=== PATIENT | male | born 1980 | race Two or more races ===

== ENCOUNTER 2019-05-31 07:13 | Day surgery (SDC) | payer MEDICARE, MEDICAID ==
[2019-05-26 15:30] LABS: CLARITY,URINE CLEAR (Clear); COLOR,URINE YELLOW (Yellow); GLUCOSE, URINE NEGATIVE (Neg); KETONES,URINE NEGATIVE (Neg); LEUKOCYTE ESTERASE ,URINE NEGATIVE (Neg); NITRITES, URINE NEGATIVE (Neg); OCCULT BLOOD,URINE NEGATIVE (Neg); PH,URINE 7.5 (4.8-8.0); PROTEIN,URINE NEGATIVE (Neg); UROBILINOGEN,URINE 0.2 E.U/dL (0.2-1.0)
[2019-05-26 15:31] LABS: UA COLLECTION TYPE VOIDED
[2019-05-26 15:37] LABS: BASOPHILS % (AUTO) 0.6 % (0-1); LYMPHOCYTES # (AUTO) 1.9 X10'3 (1.1-4.8); LYMPHOCYTES % (AUTO) 41.8 % (21-51); MEAN CORPUSCULAR HEMOGLOBIN 20.3 PG (27.0-31.0); MEAN CORPUSCULAR HGB CONC 32.5 g/dL (33.0-36.5); MEAN CORPUSCULAR VOLUME 62.3 FL (78-98); MEAN PLATELET VOLUME 8.9 FL (7.4-10.4); MONOCYTES # (AUTO) 0.3 X10'3 (0-0.9); MONOCYTES % (AUTO) 7.1 % (2-12); NEUTROPHILS # (AUTO) 2.3 X10'3 (1.8-7.7); NEUTROPHILS % (AUTO) 49.5 % (42-75); PRE OP HEMATOCRIT 37.7 % (42.0-52.0); PRE OP HEMOGLOBIN 12.3 g/dL (14.0-17.9); PRE OP PLATELET COUNT 199 X10'3 (140-440); RED BLOOD COUNT 6.04 X10'6 (4.70-6.10); RED CELL DISTRIBUTION WIDTH 15.9 % (11.5-14.5)
[2019-05-26 15:52] LABS: ALBUMIN/GLOBULIN RATIO 1.1 (1.1-1.5); ALKALINE PHOSPHATASE 79 IU/L (46-116); BLOOD UREA NITROGEN 6 MG/DL (7-18); BUN/CREATININE RATIO 8.5 (5.4-32.0); CALCIUM 8.3 MG/DL (8.5-10.1); CHLORIDE 105 MMOL/L (99-107); CREATININE 0.71 MG/DL (0.60-1.10); PRE OP ALT 27 U/L (30-65); PRE OP ANION GAP 8 (8-16); PRE OP AST 11 U/L (10-37); PRE OP BILIRUB, TOTAL 0.5 MG/DL (0.0-1.0); PRE OP GLUCOSE 93 MG/DL (70-104); PRE OP POTASSIUM 4.1 MMOL/L (3.4-5.1); PRE OP SODIUM 139 MMOL/L (135-145); TOTAL CARBON DIOXIDE 25.9 MMOL/L (24-32); TOTAL PROTEIN 7.5 G/DL (6.4-8.2); eGFR > 90 ML/MIN
[2019-05-26 15:58] LABS: PRE OP PROTIME 10.1 SECONDS (9.0-12.0)
[2019-05-26 16:40] LABS: PLATELET ESTIMATE NORMAL
[2019-05-26 16:41] LABS: ANISOCYTOSIS 1+; ELLIPTOCYTES FEW; HYPOCHROMASIA 2+; MICROCYTOSIS 2+; POIKILOCYTOSIS 1+; TEAR DROP CELLS 1+
[~2019-05-31] VITALS: Ht 180.3 cm; Wt 95.1 kg
[~2019-05-31 07:13] MED LIST: ALBU8.5H8 INH; BENZ1TAB7 PO; CHOL10002 PO; DIVA-76 PO; IRON OTC PO; LEVO25TA2 PO; PARO40TA PO; POTA10CA44 PO; QUET-1 PO; RISP4TAB7 PO; VARD20TA31 PO; ZIPR40CA2 PO; ZIPR80CA2 PO
[2019-05-31 07:30] VITALS: BP 105/71
[2019-05-31] MEDS ORDERED: cefazolin/dext.iso 2gm/100 ML IV ONE (07:30)
[2019-05-31] MEDS ORDERED: ringers solution, lacted 1,000 ML IV SCH ×2 (07:30→08:34)
[2019-05-31] MEDS ORDERED: famotidine 20mg tablet PO ONE (07:30)
[2019-05-31] MEDS ORDERED: albuterol 2.5 MG/3 ML nebule NEB ONE (07:30)
[2019-05-31] MEDS ORDERED: LIDOcaine 1% (10mg/ml) 2ml vial ONE (07:31)
[2019-05-31] MEDS ORDERED: morphine 4 MG/ML inj SYRINge IV PRN ×2 (08:35)
[2019-05-31] MEDS ORDERED: ondansetron/PF 4mg/2ml inj IV PRN (08:35)
[2019-05-31] MEDS ORDERED: meperidine/PF 25mg/ml syringe IV PRN ×3 (08:35)
[2019-05-31] MEDS ORDERED: proCHLORperazine 10 MG/2 ml inj IV PRN (08:35)
[2019-05-31] MEDS ORDERED: fentaNYL/PF 50MCG/1 ML 2ML syringe ONE (10:33)
[2019-05-31] MEDS ORDERED: MIDAZolam 5mg/5ml vial ONE (10:33)
[2019-05-31] MEDS ORDERED: LIDOcaine 1% 30ml preserv. free vial ONE (10:41)
[2019-05-31] MEDS ORDERED: LIDOcaine 2% (20mg/ml) 5ml vial ONE (10:41)
[2019-05-31] MEDS ORDERED: propofol inj 20 ML IV ONE (10:41)
[2019-05-31 11:04] VITALS: BP 116/54
--- NOTE | 2019-05-31 11:04 | NUR ---
Received from OR via , accompanied by Anesthesiologist DR TREVINO and report given by Anesthesiolgist. AWAKENS TO VOICE. VITALS STABLE. DRESSING DI. DIANN PAIN.
[2019-05-31 11:14] VITALS: BP 108/69
[2019-05-31 11:24] VITALS: BP 109/75
[2019-05-31 11:34] VITALS: BP 111/73
--- NOTE | 2019-05-31 11:44 | NUR ---
AWAKE AND ORIENTED. VITALS STABLE. DRESSING DI. DIANN PAIN. HOME WITH HIS MOM AT THIS TIME.
== END 2019-05-31 11:44 | disposition home or self-care (01) ==
LOC: PAS 07:13
PROVIDERS: ATTEND Surgery
DX: D17.1 Benign lipomatous neoplasm of skin and subcutaneous tissue of trunk (principal); J45.909 Unspecified asthma, uncomplicated; F17.210 Nicotine dependence, cigarettes, uncomplicated; F31.9 Bipolar disorder, unspecified; F20.9 Schizophrenia, unspecified; Z98.890 Other specified postprocedural states; Z79.899 Other long term (current) drug therapy; Z85.850 Personal history of malignant neoplasm of thyroid
CPT/HCPCS: 21552; 36415; 80053; 81003; 82948; 85025; 85610; 85730; 93005; J2001; J2250; J2704; J3010; J7120; A4215; A4618; A6449; A7000

== ENCOUNTER 2024-03-02 15:58 | Emergency (ER) | payer MEDICARE, MEDICAID ==
[~2024-03-02] VITALS: Ht 182.9 cm; Wt 77.0 kg
[~2024-03-02 15:58] MED LIST changes: +ALBU8.5H17 INH; -ALBU8.5H8 INH; -BENZ1TAB7 PO; +BENZ1TAB93 PO; +PARO-154 PO; -PARO40TA PO; -POTA10CA44 PO; +POTA10CA95 PO
[2024-03-02] MEDS: haloperidol lactate 5mg/ml inj IM ONE ×2 (16:29→17:42)
[2024-03-02] MEDS: LORazepam 2 mg/ml vial IM ONE (16:29)
[2024-03-02] MEDS: diphenhydrAMINE 50 mg/ml inj IM ONE (16:29)
[2024-03-02] MEDS: LidoCAINE 2% Topical Jelly 11mL syringe (UROJET) TOP ONE (17:46)
[2024-03-02] MEDS: LORazepam 2 mg/ml vial IM STA (18:32)
[2024-03-02] MEDS: OLANZapine **IM** 10 mg inj. IM ONE (20:25)
[2024-03-02 22:12] LABS: BASOPHILS # (AUTO) 0.1 X10'3 (0-0.2); PLATELET COUNT 357 X10'3 (140-440); WHITE BLOOD COUNT 8.8 X10'3 (4.5-11.0)
[2024-03-02 22:13] LABS: BASOPHILS % (AUTO) 0.7 % (0-1); EOSINOPHILS # (AUTO) 0.1 X10'3 (0-0.9); EOSINOPHILS % (AUTO) 1.3 % (0-6); HEMOGLOBIN 10.4 g/dl (14.0-17.9); LYMPHOCYTES # (AUTO) 2.3 X10'3 (1.1-4.8); LYMPHOCYTES % (AUTO) 26.2 % (21-51); MEAN CORPUSCULAR HEMOGLOBIN 19.9 PG (27.0-31.0); MEAN CORPUSCULAR HGB CONC 32.3 g/dL (33.0-36.5); MEAN CORPUSCULAR VOLUME 61.6 FL (78-98); MEAN PLATELET VOLUME 7.4 FL (7.4-10.4); MONOCYTES # (AUTO) 0.7 X10'3 (0-0.9); MONOCYTES % (AUTO) 7.5 % (2-12); NEUTROPHILS # (AUTO) 5.7 X10'3 (1.8-7.7); NEUTROPHILS % (AUTO) 64.3 % (42-75)
[2024-03-02 22:27] LABS: ANISOCYTOSIS 1+; PLATELET ESTIMATE NORMAL
[2024-03-02 22:28] LABS: ELLIPTOCYTES FEW; MICROCYTOSIS 2+; POIKILOCYTOSIS FEW
[2024-03-02 22:29] LABS: ALBUMIN 3.2 G/DL (3.4-5.0); ANION GAP 6 (8-16); BLOOD UREA NITROGEN 6 MG/DL (7-18); BUN/CREATININE RATIO 9.8 (10.0-20.0); CALCIUM 8.6 MG/DL (8.5-10.1); CHLORIDE 108 MMOL/L (99-107); CREATININE 0.61 MG/DL (0.60-1.10); ETHANOL < 10 MG/DL (<10); GLUCOSE 95 MG/DL (70-104); POTASSIUM 3.7 MMOL/L (3.5-5.1); SCHISTOCYTES FEW; SODIUM 141 MMOL/L (135-145); TARGET CELLS FEW; TOTAL CARBON DIOXIDE 26.7 MMOL/L (24-32); eCRCL 167 ML/MIN; eGFR > 90 ML/MIN
[2024-03-02 22:30] LABS: BURR CELLS FEW; HYPOCHROMASIA 1+
[2024-03-02 22:59] LABS: THYROID STIMULATING HORMONE 93.04 ulU/ml (0.34-4.50)
[2024-03-03 02:01] LABS: CREATINE KINASE 571 U/L (39-308); FREE T4 (FREE THYROXINE) 0.76 NG/DL (0.73-1.40)
[2024-03-03] MEDS: normal saline 1000ML IV soln IVB ONE (02:19)
[2024-03-03 06:49] LABS: BILIRUBIN,URINE NEGATIVE (Neg); CLARITY,URINE CLEAR (Clear); COLOR,URINE YELLOW (Yellow); GLUCOSE, URINE NEGATIVE (Neg); KETONES,URINE NEGATIVE (Neg); LEUKOCYTE ESTERASE ,URINE NEGATIVE (Neg); NITRITES, URINE NEGATIVE (Neg); OCCULT BLOOD,URINE NEGATIVE (Neg); PROTEIN,URINE NEGATIVE (Neg); UROBILINOGEN,URINE 0.2 E.U/dL (0.2-1.0)
[2024-03-03 06:56] LABS: UA COLLECTION TYPE VOIDED
[2024-03-03 07:04] LABS: URINE AMPHETAMINE SCREEN NEGATIVE (Neg); URINE BARBITUATE SCREEN NEGATIVE (Neg); URINE BENZODIAZEPINES SCREEN NEGATIVE (Neg); URINE CANNABINOID SCREEN POSITIVE (Neg); URINE COCAINE SCREEN NEGATIVE (Neg); URINE METHADONE SCREEN NEGATIVE (Neg); URINE OPIATE SCREEN NEGATIVE (Neg); URINE PHENCYCLIDINE SCREEN NEGATIVE (Neg)
[2024-03-03] MEDS ORDERED: LORazepam 2 mg/ml vial IM ONE (07:15)
[2024-03-03] MEDS ORDERED: haloperidol lactate 5mg/ml inj IM ONE (07:15)
[2024-03-03 08:32] VITALS: TEMP 98.5
[2024-03-03] MEDS: haloperidol 5mg tablet PO ONE (08:52)
[2024-03-03] MEDS: LORazepam 1 MG tablet PO ONE ×2 (08:52→14:00)
[2024-03-03] MEDS: acetaminophen 325mg tablet PO ONE ×2 (08:53→13:56)
[2024-03-03] MEDS ORDERED: QUET200T31 PO (13:17)
[2024-03-03] MEDS ORDERED: CARB200T8 PO (13:17)
[2024-03-03] MEDS ORDERED: PRAZ2CAP2 PO (13:17)
[2024-03-03] MEDS ORDERED: FLUT1BLS16 INH (13:17)
[2024-03-03] MEDS ORDERED: ARIP10TA57 PO (13:17)
[2024-03-03] MEDS ORDERED: ERGO500093 PO (13:17)
[2024-03-03] MEDS ORDERED: SERT-434 PO (13:17)
[2024-03-03] MEDS ORDERED: ERGO500041 PO (16:21)
[2024-03-03] MEDS ORDERED: LEVO150T PO (16:21)
[2024-03-03] MEDS ORDERED: FLUT1BLS4 INH (16:21)
[2024-03-03] MEDS: ergocalciferol (vit D2) capsule 50,000 UNITS (1,250mcg) CAPSULE PO SCH (17:03)
[2024-03-03 17:37] VITALS: PULSE 106; RESP 17; O2SAT 98
[2024-03-03] MEDS: LORazepam 2 mg/ml vial IM ONE (19:03)
[2024-03-03] MEDS: haloperidol lactate 5mg/ml inj IM ONE (19:04)
[2024-03-03] MEDS: diphenhydrAMINE 50 mg/ml inj IM ONE (19:04)
[2024-03-03] MEDS: aripiprazole 10MG tablet PO ONE (19:14)
[2024-03-03] MEDS: budesonide 0.5mg/2ml UD nebule IH SCH (19:57)
[2024-03-03] MEDS: carBAMazepine 100mg chewable tablet PO SCH (21:00)
[2024-03-03] MEDS: prazosin 1mg capsule PO SCH (21:00)
[2024-03-04] MEDS: OLANZapine 2.5MG tablet PO SCH (05:55)
[2024-03-04] MEDS ORDERED: OLANZapine 2.5MG tablet PO STA (05:55)
[2024-03-04] MEDS: olanzapine 10mg tablet PO ONE (06:03)
[2024-03-04] MEDS: ipratropium/albuterol 3ml nebule IH SCH (08:00)
[2024-03-04] MEDS: aripiprazole 10MG tablet PO SCH (08:50)
[2024-03-04] MEDS: levoTHYROXINE 75mcg tablet PO SCH (08:50)
[2024-03-04] MEDS: LORazepam 1 MG tablet PO ONE (09:59)
[2024-03-04 13:22] VITALS: PULSE 125; RESP 18
[2024-03-04] MEDS ORDERED: ziprasidone IM 20mg inj **IM only IM ONE ×2 (15:00→15:30)
[2024-03-04 15:30] VITALS: BP 102/63
[2024-03-04 19:50] VITALS: PULSE 112; RESP 18; O2SAT 96
== END 2024-03-04 20:06 | disposition left against medical advice (07) ==
LOC: ER 15:58
DX: F29 Unspecified psychosis not due to a substance or known physiological condition (principal); Z20.822 Contact with and (suspected) exposure to COVID-19
CPT/HCPCS: 36415; 80048; 80305; 80320; 81003; 82550; 84439; 84443; 84480; 85008; 85025; 87811; 93005; 96360; 96361; 96372; 99285; J1200; J1630; J2060; J3490; J7030; 94760